=== PATIENT | female | born 1970 | race Caucasian/White ===

== ENCOUNTER 2019-02-15 08:40 | Day surgery (SDC) | payer BC ==
[2019-02-14 17:43] VITALS: BMI 29.4
[2019-02-15] MEDS ORDERED: ceFAZolin SODIUM 1 GM VIAL IVPB ONE (10:30)
[2019-02-15] MEDS ORDERED: BUPIVACAINE HCL/PF (5 MG/ML) 30 ML VIAL IJ ONE ×2 (10:41)
[2019-02-15] MEDS ORDERED: LIDOCAINE HCL 1%, 10 MG/ML (20ML VIAL) INF ONE ×2 (10:41)
--- NOTE | 2019-02-15 11:18 | OP ---
Operative Note - Note: Operative Date: 02/15/19 Pre-Operative Diagnosis: Stress incontinence Operation: Mid urethral sling placement Implants: sling Post-Operative Diagnosis: Same as Pre-op Surgeon: Pernell Horta MD. Anesthesia: General Specimens Removed: Portion ant vaginal wall Estimated Blood Loss (mls): 20 Drains & Tubes with Location: 18 fr sue Operative Report Dictated: Yes
[2019-02-15] MEDS ORDERED: ELECTROLYTE-148 SOLN 1,000 ML IV SCH (11:30)
[2019-02-15] MEDS ORDERED: ONDANSETRON 4 MG/2 ML VIAL IVPUSH PRN (11:34)
[2019-02-15] MEDS ORDERED: PROMETHAZINE HCL 25 MG/1 ML VIAL IVPB PRN (11:34)
[2019-02-15] MEDS ORDERED: ACETAMINOPHEN 1000 MG/100 ML VIAL (NON FORMULARY) IVPB ONE (11:36)
[2019-02-15] MEDS ORDERED: LACTATED RINGERS SOLUTION 1,000 ML IV SCH (11:45)
--- NOTE | 2019-02-15 12:42 | OP ---
DATE OF OPERATION: 02/15/2019 PREOPERATIVE DIAGNOSIS: Stress incontinence. POSTOPERATIVE DIAGNOSIS: Stress incontinence. PROCEDURE: Mid urethral sling placement. HISTORY: This is a very pleasant 48-year-old female with a long history of stress incontinence, wearing several pads per day. Her leak point pressure was approximately 15 mmHg. After discussion treatment options, including more conservative treatments, patient elected to undergo the above-stated procedure. Risks and benefits of treatment and alternative treatments discussed in detail. All questions were answered. BRIEF OPERATIVE NOTE: Patient was brought into the operating room and placed in supine position. Once general anesthesia was administered, intravenous antibiotics were given. The patient was transferred to the dorsal lithotomy position, prepped and draped in standard sterile fashion. At this time, a combination of lidocaine and Marcaine was used as anesthetic approximately 1 cm proximal to the urethral meatus. The anterior vaginal wall was dissected free from the urethra and periurethral tissue. A space was created by the obturator foramen bilaterally. This was using sharp and blunt dissection. At this time, the Altis Sling was placed into the obturator foramen without difficulty. The sling was in the mid urethral position and was flat and not kinked. There was no evidence of active bleeding. The urine was clear. A portion of the anterior vaginal wall was removed and given off as a specimen. A 2-0 Vicryl was used to close the anterior vaginal wall in running fashion. A Betadine-soaked vaginal packing was applied. The Richard was then left to straight drainage. The patient was brought to the recovery room in stable and satisfactory condition. Carlos [id number]
[2019-02-15] MEDS ORDERED: oxyCODONE HCL 5 MG TABLET ONE (12:55)
[2019-02-15 13:14] VITALS: PULSE 64
[2019-02-15 13:16] VITALS: BP 120/70; TEMP 98
--- NOTE | 2019-02-16 18:13 | PATH ---
Surgical Pathology Report Patient Name: SAV SIDDIQI [facility]. Rec. #: [id number] /Age/Gender: 1970 (Age: 48) / F Account: [id number] Location: [facility] SURGICAL Taken: 02/15/2019 Received: 02/15/2019 Reported: 02/16/2019 Physicians: Pernell Horta M.D. Specimen(s) Received PORTION OF ANTERIOR VAGINAL WALL Clinical History Incontinence Final Diagnosis PORTION OF ANTERIOR VAGINAL WALL, MID URETHRAL SLING PLACEMENT: VAGINAL SQUAMOUS MUCOSA WITHOUT SIGNIFICANT PATHOLOGIC FINDINGS. Electronically Signed Millicent Younger M.D. Gross Description Received in formalin labeled "portion of anterior vaginal wall," is a 1.7 x 1.7 x 0.4 cm pink-mondragon portion of soft tissue, consistent with a portion of vaginal wall. The specimen is serially sectioned and entirely submitted in one cassette. /02/15/201902/15/2019
== END 2019-02-15 13:47 | disposition home or self-care (01) ==
LOC: JASU-SURG 08:40
PROVIDERS: ATTEND Urology
PROC: 0TSD0ZZ Reposition Urethra, Open Approach (ICD-10-PCS; principal; 2019-02-15 10:30)
DX: N39.3 Stress incontinence (female) (male) (principal)
CPT/HCPCS: 57288; C1771; 88304-TC; 94760; J0131